=== PATIENT | male | born 1965 | race Caucasian/White ===

== ENCOUNTER 2017-12-29 15:28 | Emergency (ER) | payer MEDICAID ==
[2017-12-29 15:28] VITALS: BMI 36.6
[2017-12-29 15:44] VITALS: BP 129/79; PULSE 85; RESP 18; TEMP 98.6; O2SAT 98
[2017-12-29] MEDS ORDERED: Lidocaine 5% Patch TD STA (15:56)
[2017-12-29] MEDS ORDERED: Lidocaine 5% Patch TD ONE (16:11)
--- NOTE | 2017-12-29 17:04 | C.PDOC ---
History Of Present Illness 52-year-old male presents to the ED for evaluation of low back pain since yesterday. States that he noticed the onset of pain at work after lifting boxes. Patient otherwise denies any numbness, extremity weakness, fever, dysuria , nausea, incontinence of bowel or bladder. Time Seen by Provider: 12/29/17 15:53 Chief Complaint (Nursing): Back Pain History Per: Patient History/Exam Limitations: no limitations Onset/Duration Of Symptoms: Days Current Symptoms Are (Timing): Still Present Past Medical History Reviewed: Historical Data, Nursing Documentation, Vital Signs Vital Signs: Last Vital Signs Temp 98.6 F 12/29/17 15:42 Pulse 85 12/29/17 15:42 Resp 18 12/29/17 15:42 BP 129/79 12/29/17 15:42 Pulse Ox 98 12/29/17 17:39 - Medical History PMH: No Chronic Diseases Surgical History: No Surg Hx Family History: States: Unknown Family Hx - Social History Hx Tobacco Use: No Hx Alcohol Use: No Hx Substance Use: No - Immunization History Hx Tetanus Toxoid Vaccination: No Hx Influenza Vaccination: No Hx Pneumococcal Vaccination: No Review Of Systems Except As Marked, All Systems Reviewed And Found Negative. Constitutional: Negative for: Fever Gastrointestinal: Negative for: Nausea, Vomiting Genitourinary: Negative for: Dysuria, Frequency, Incontinence Musculoskeletal: Positive for: Back Pain Neurological: Negative for: Weakness, Numbness Physical Exam - Physical Exam Appears: Non-toxic, No Acute Distress Skin: Warm, Dry, No Rash Head: Atraumatic, Normacephalic Eye(s): bilateral: Normal Inspection Nose: Normal Oral Mucosa: Moist Neck: Normal ROM, Supple Chest: Symmetrical Cardiovascular: Rhythm Regular, No Murmur Respiratory: Normal Breath Sounds, No Accessory Muscle Use, No Wheezing Back: No Vertebral Tenderness, No Decreased ROM, Paraspinal Tenderness (to bilateral paralumbar regions) Extremity: Bilateral: Atraumatic, Normal ROM Neurological/Psych: Oriented x3, Normal Speech, Normal Motor, Normal Sensation, Other (No focal deficits) ED Course And Treatment O2 Sat by Pulse Oximetry: 98 (RA) Pulse Ox Interpretation: Normal Medical Decision Making Medical Decision Making: Impression: Low back pain Initial Plan: --Lidoderm patch TD --Toradol 30 mg IM --Valium 5 mg PO --Reassessment Progress, Reassess and Dispo: On re-examination, patient is resting comfortably in no acute distress. Patient reports improvement of symptoms. Patient feels comfortable going home and will be discharged. Patient given follow up instructions. Instructed to return to ER if symptoms worsen or new symptoms arise. Disposition Counseled Patient/Family Regarding: Diagnosis, Need For Followup - Disposition Referrals: Eusebio Paiz MD [Staff Provider] - Disposition: HOME/ ROUTINE Disposition Time: 17:02 Condition: STABLE Additional Instructions: Apply heat to area 15 minutes three times a day. Take Motrin as needed for pain every 6 hours, with food to not upset stomach. Take Flexeril for muscle pain and spasm, caution can cause drowsiness. Follow up with orthopedic if pain persists over one week. Aplique calor al robin 15 minutos panfilo veces al da. Sikes Motrin cuando sea necesario para el dolor cada 6 horas, con alimentos para no alterar el est yao. Sikes Flexeril para el dolor y el espasmo muscular, la precaucin puede causar somnolencia. Jennifer un seguimiento con ortopedia si el dolor persiste domingo aaliyah semana. 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 - Scribe Statement The provider has reviewed the documentation as recorded by the Scribe ([place]) All medical record entries made by the Scribe were at my direction and personally dictated by me. I have reviewed the chart and agree that the record accurately reflects my personal performance of the history, physical exam, medical decision making, and the department course for this patient. I have also personally directed, reviewed, and agree with the discharge instructions and disposition.
== END 2017-12-29 15:57 | disposition home or self-care (01) ==
LOC: C.ER 15:28
DX: S33.5XXA Sprain of ligaments of lumbar spine, initial encounter (principal); X50.0XXA Overexertion from strenuous movement or load, initial encounter; Y92.89 Other specified places as the place of occurrence of the external cause; Y99.0 Civilian activity done for income or pay
CPT/HCPCS: 96372; 99282; J1885

== ENCOUNTER 2017-12-31 16:01 | Emergency (ER) | payer MEDICAID ==
[2017-12-31 16:02] VITALS: BMI 36.6
[2017-12-31 16:30] VITALS: BP 127/69; PULSE 84; RESP 18; TEMP 98.8; O2SAT 99
--- NOTE | 2017-12-31 16:37 | C.PDOC ---
History Of Present Illness 52-year-old male presents to the ED complaining of worsening left lower back pain, onset 3 days ago. He was seen here 2 days ago for same complaint and discharged home with Motrin and Flexeril. Patient reports taking the medications without relief. He states pain is worse and he can hardly walk. Patient is ambulatory with steady gait in the ED. Patient otherwise denies any numbness, extremity weakness, fever, dysuria, nausea, incontinence of bowel or bladder. Reports he tried to see his primary doctor but the office was not open. Requesting x-ray evaluation of his back. Time Seen by Provider: 12/31/17 16:27 Chief Complaint (Nursing): Lower Extremity Problem/Injury History Per: Patient History/Exam Limitations: no limitations Onset/Duration Of Symptoms: Days (x3) Current Symptoms Are (Timing): Still Present Past Medical History Reviewed: Historical Data, Nursing Documentation, Vital Signs Vital Signs: Last Vital Signs Temp 98.8 F 12/31/17 16:27 Pulse 84 12/31/17 16:27 Resp 18 12/31/17 16:27 BP 127/69 12/31/17 16:27 Pulse Ox 99 12/31/17 17:30 - Medical History PMH: No Chronic Diseases Surgical History: No Surg Hx Family History: States: Unknown Family Hx - Social History Hx Tobacco Use: No Hx Alcohol Use: No Hx Substance Use: No - Immunization History Hx Tetanus Toxoid Vaccination: No Hx Influenza Vaccination: No Hx Pneumococcal Vaccination: No Review Of Systems Except As Marked, All Systems Reviewed And Found Negative. Constitutional: Negative for: Fever Genitourinary: Negative for: Dysuria, Frequency, Incontinence Musculoskeletal: Positive for: Back Pain Neurological: Negative for: Weakness, Numbness, Incoordination Physical Exam - Physical Exam Appears: Well, Non-toxic, No Acute Distress Skin: Warm, Dry, No Rash Head: Atraumatic, Normacephalic Eye(s): bilateral: Normal Inspection Oral Mucosa: Moist Neck: Normal ROM Chest: Symmetrical Cardiovascular: Rhythm Regular, No Murmur Respiratory: Normal Breath Sounds, No Accessory Muscle Use, No Wheezing Back: No Vertebral Tenderness, No Decreased ROM, Paraspinal Tenderness (to left paralumbar region) Extremity: Bilateral: Atraumatic, Normal ROM Neurological/Psych: Oriented x3, Normal Speech, Normal Motor, Normal Sensation, Other (No focal deficits) ED Course And Treatment O2 Sat by Pulse Oximetry: 99 (RA) Pulse Ox Interpretation: Normal - Other Rad X-Ray LS Spine X-Ray: Viewed By Me, Read By Radiologist Interpretation: Accession No. : [id number]. Patient Name / ID : HELIO DELAROSA / [id number]. Exam Date : 12/31/2017 17:14:19 ( Approved ). Study Comment : Sex / Age : M / 52Y. Creator : Tawny Gonzales. Dictator : Williams Hopson MD. [employer] Rep : Deli Bakery Clerk : Williams Hopson MD. Approver2 : Report Date : 12/31/2017 17:20:48. My Comment : . Date of service: 12/31/2017. PROCEDURE: Radiographs of the Lumbar Spine. HISTORY: back pain for few days lifting boxes. COMPARISON: No prior. FINDINGS: BONES : Normal alignment. No listhesis. No fracture. DISC SPACES: Unremarkable. OTHER FINDINGS: None. IMPRESSION: Unremarkable radiographs of the lumbar spine. Medical Decision Making Medical Decision Making: Impression: Low back pain Initial Plan: --X-Ray Lumbar Spine --Toradol 30 mg IM Progress, Reassess and Dispo: Counseled patient regarding normal x-rays. On re-examination, patient is resting comfortably in no acute distress. Patient feels comfortable going home and will be discharged. Patient given follow up instructions. Instructed to return to ER if symptoms worsen or new symptoms arise. Disposition Counseled Patient/Family Regarding: Diagnosis, Need For Followup, Rx Given - Disposition Referrals: Eusebio Paiz MD [Staff Provider] - Disposition: HOME/ ROUTINE Disposition Time: 17:29 Condition: STABLE Additional Instructions: Jennifer un seguimiento con mukherjee mdico Continuar tomando otros analgsicos Tramadol es para el dolor medio a lashon, puede causar somnolencia Prescriptions: traMADol [Ultram] 50 mg PO Q8 PRN #20 tab PRN Reason: Pain, Severe (8-10) Instructions: Low Back Pain (DC), Tramadol Forms: Work Excuse Print Language: AZERBAIJANI - POA Present On Arrival: None - Clinical Impression Clinical Impression: Low back strain - 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 - Scribe Statement The provider has reviewed the documentation as recorded by the Scribe ([place]) All medical record entries made by the Scribe were at my direction and personally dictated by me. I have reviewed the chart and agree that the record accurately reflects my personal performance of the history, physical exam, medical decision making, and the department course for this patient. I have also personally directed, reviewed, and agree with the discharge instructions and disposition.
--- NOTE | 2017-12-31 18:24 | RAD ---
Date of service: 12/31/2017 PROCEDURE: Radiographs of the Lumbar Spine. HISTORY: back pain for few days lifting boxes COMPARISON: No prior. FINDINGS: BONES: Normal alignment. No listhesis. No fracture. DISC SPACES: Unremarkable. OTHER FINDINGS: None. IMPRESSION: Unremarkable radiographs of the lumbar spine.
== END 2017-12-31 17:35 | disposition home or self-care (01) ==
LOC: C.ER 16:01
DX: S39.012A Strain of muscle, fascia and tendon of lower back, initial encounter (principal); X58.XXXA Exposure to other specified factors, initial encounter
CPT/HCPCS: 72100; 96372; 99284; J1885